=== PATIENT | female | born 1935 | race African-American/Black ===

== ENCOUNTER 2018-06-08 18:46 | Inpatient (IN) | payer OTHER, BC ==
[~2018-06-08] VITALS: Ht 147.3 cm; Wt 75.8 kg
--- NOTE | ~2018-06-08 | HC ---
[facility] [place] [address] CONSULTATION Name: SYARA LARA KELSEY Room #: 227-P [facility] IN M.R.#: [id number] Admission: 06/08/18 Attend Phys: Luke Neville MD Discharge: Date of : 39 Report #: [id number] THIS REPORT FOR: //name// CC: Cade Campbell DATE OF SERVICE: 06/09/2018 CHIEF COMPLAINT: Right shoulder pain. HISTORY OF PRESENT ILLNESS: The patient is a very pleasant 83-year-old female, seen today for evaluation of her right shoulder. The patient is here with her daughter. The patient reports that she was chasing one of her Sharri Tzu dogs as it was trying to escape house and she sustained a fall landing on her right upper extremity. She reports significant pain about her shoulder and reportedly has a history of vertigo over these last several months that has required ambulation with a cane. She denies loss of consciousness or other injuries. Her primary physician is Dr. Swathi Linder. She reports a history of arthritis in multiple areas throughout her body. PAST MEDICAL HISTORY: Significant for vertigo, arthritis, back pain, history of falls, hyperlipidemia, hypertension, spinal stenosis, AFib, GERD, diverticulitis. SOCIAL HISTORY: The patient lives at home with her daughter. PAST SURGICAL HISTORY: Bilateral knee replacement, appendectomy, tonsillectomy, total hysterectomy, breast reduction, abdominal hernia, pacemaker placement. CURRENT MEDICATIONS: Please see current MAR. ALLERGIES: CODEINE CAUSES DIZZINESS. SOCIAL HISTORY: Denies alcohol or tobacco use. PHYSICAL EXAMINATION: GENERAL: The patient is alert, oriented, answering questions appropriately. VITAL SIGNS: Most recent vitals include temperature 97.5, pulse 72, respirations 20, BP 120/52, O2 sat 100% on room air, height 4 feet 10 inches, weight 167. EXTREMITIES: Examination of the upper extremities reveals moderate tenderness about the right proximal humerus. No obvious deformity is noted. She is nontender over the right and left clavicles. Left shoulder has 110 degrees of forward elevation, 25 degrees of external rotation and full strength with testing of the rotator cuff musculature. Strength is limited in the right upper [facility] [address] [place] [address] CONSULTATION Name: SAYRA LARA KELSEY Room #: 227-P [facility] IN .R.#: [id number] Admission: 06/08/18 Attend Phys: Luke Neville MD Discharge: Date of : 39 Report #: [id number] extremity due to pain. She reports no pain or tenderness about the elbow, forearm, wrist or hand. She is able make a full fist on both hands. She reports some chronic intermittent numbness in the left hand that is not new since her fall or hospitalization. She reports intact sensation on the right upper extremity and hand compartments are soft. RADIOGRAPHS: Obtained on 06/08/2018 and 06/09/2018 reveal right glenohumeral joint arthrosis with possible nondisplaced fracture. This is not clearly evident. LABORATORY DATA: Reviewed. IMPRESSION: 1. Right shoulder pain status post fall, possible nondisplaced proximal humerus fracture. 2. Right glenohumeral joint osteoarthritis. PLAN: We reviewed potential treatment options with the patient and her daughter. At this point, they would like further imaging studies to help clarify the potential fracture. An MRI will be ordered if possible because this will also give us more information regarding potential rotator cuff tear. They feel comfortable in proceeding in this manner. We discussed that if she does have a nondisplaced fracture, she likely could be treated nonoperatively with immobilization in her shoulder immobilizer for approximately 1 month's time. The expected post-injury course was gone over in detail. The eventual need for physical therapy to help improve her shoulder function was discussed. They are comfortable in proceeding in this manner. <ELECTRONICALLY SIGNED> By: Edy Segundo MD 06/12/18 [id number] Edy Segundo MD /nt
[~2018-06-08 18:46] MED LIST: ALDACTONE25 MG PO; CIPROFLOXACIN500 M1 PO; COZAAR 50 MG TA50 M2 PO; DILTIAZEM 24HR180 MG PO; DILTIAZEM ER240 M1 PO; GABAPENTIN100 MG PO; HYDROCHLOROTHIA25 M1 PO; HYDROCHLOROTHIA25 M2 GT; MOBIC15 MG PO; NAPROSYN500 MG PO; NEURONTIN100 MG PO; NORCO 5-325 TA1 EACH PO; PRAVACHOL40 MG PO; PRILOSEC20 MG PO; SORINE 80 MG TA80 M1 PO; SYNTHROID50 MCG PO; TAMBOCOR 100 M100 M1 PO; TRAMADOL HCL50 MG PO; TYLENOL325 MG PO; [UNRECOGNIZED DRUG - OTHER]
[2018-06-08 18:59] VITALS: BP 119/64
[2018-06-08] MEDS ORDERED: ZANTAC 150MG T150 MG PO (19:31)
[2018-06-08] MEDS ORDERED: HYDROCHLOROTHIA25 M2 PO (19:31)
[2018-06-08] MEDS ORDERED: PACERONE 200 M200 M1 PO (19:32)
[2018-06-08] MEDS ORDERED: CELEXA10 MG PO (19:32)
[2018-06-08] MEDS ORDERED: TRAMADOL 50 MG50 MG PO (19:32)
[2018-06-08] MEDS ORDERED: MECLIZINE HCL12.5 MG PO (19:37)
[2018-06-08 22:17] LABS: ABSOLUTE NEUTROPHILS 2.3 thou/uL (1.4-8.2); BASOPHILS 0.9 % (0.0-2.0); EOSINOPHILS 3.3 % (0.0-3.0); HEMATOCRIT 34.8 % (37.0-47.0); HEMOGLOBIN 11.4 gm/dL (12.0-15.0); MCH 28.2 pg (26.0-34.0); MCHC 32.7 g/dL (28.0-37.0); MCV 86.2 fL (80.0-100.0); MONOCYTES 7.7 % (1.0-8.0); PLATELET COUNT 217 thou/uL (150-400); POLYS 50.1 % (36.0-66.0); RBC 4.04 mil/uL (4.20-5.00); RDW 14.2 % (10.5-14.5); WBC 4.7 thou/uL (4.0-11.0)
[2018-06-08 22:25] LABS: CREATININE 1.5 mg/dL (0.6-1.0); POTASSIUM 4.4 mmol/L (3.5-5.1)
[2018-06-08 22:57] VITALS: BP 137/47
[2018-06-09 03:34] VITALS: BP 123/86
[2018-06-09 08:54] VITALS: BP 120/52
[2018-06-09 16:18] VITALS: BP 119/57
[2018-06-09 20:00] VITALS: BP 135/75
[2018-06-10 07:15] VITALS: BP 137/79
[2018-06-10 09:09] LABS: ABSOLUTE NEUTROPHILS 2.4 thou/uL (1.4-8.2); EOSINOPHILS 2.8 % (0.0-3.0); HEMATOCRIT 32.8 % (37.0-47.0); HEMOGLOBIN 11.2 gm/dL (12.0-15.0); LYMPHOCYTES 30.7 % (24.0-44.0); MCH 29.3 pg (26.0-34.0); MCV 86.1 fL (80.0-100.0); PLATELET COUNT 195 thou/uL (150-400); POLYS 56.5 % (36.0-66.0); RBC 3.82 mil/uL (4.20-5.00); RDW 14.1 % (10.5-14.5); WBC 4.3 thou/uL (4.0-11.0)
[2018-06-10 09:13] LABS: CALCIUM 8.5 mg/dL (8.5-10.1); CREATININE 1.4 mg/dL (0.6-1.0); POTASSIUM 4.6 mmol/L (3.5-5.1)
[2018-06-10 20:25] VITALS: BP 139/71
[2018-06-11 07:05] VITALS: BP 176/92
[2018-06-11 07:24] LABS: CALCIUM 8.9 mg/dL (8.5-10.1); CREATININE 1.5 mg/dL (0.6-1.0); POTASSIUM 4.5 mmol/L (3.5-5.1)
[2018-06-11 08:13] LABS: FOLIC ACID 15.4 ng/mL (8.6-58.9); TSH 1.853 uIU/mL (0.358-3.740)
[2018-06-11 12:05] LABS: ABSOLUTE NEUTROPHILS 3.6 thou/uL (1.4-8.2); BASOPHILS 0.5 % (0.0-2.0); EOSINOPHILS 1.7 % (0.0-3.0); HEMATOCRIT 35.7 % (37.0-47.0); HEMOGLOBIN 12.4 gm/dL (12.0-15.0); LYMPHOCYTES 22.2 % (24.0-44.0); MCH 29.4 pg (26.0-34.0); MCHC 34.7 g/dL (28.0-37.0); MCV 84.9 fL (80.0-100.0); PLATELET COUNT 205 thou/uL (150-400); POLYS 68.6 % (36.0-66.0); RDW 13.8 % (10.5-14.5); WBC 5.3 thou/uL (4.0-11.0)
[2018-06-11 14:19] LABS: ALBUMIN 3.2 g/dL (3.4-5.0); DIRECT BILIRUBIN < 0.1 mg/dL (<0.1-0.3); SGOT 23 U/L (15-37); SGPT 17 U/L (30-65); TOTAL BILIRUBIN 0.2 mg/dL (<0.1-1.0); TOTAL PROTEIN 5.7 g/dL (6.4-8.2)
[2018-06-11 20:08] VITALS: BP 167/68
[2018-06-12 08:55] VITALS: BP 146/80
[2018-06-12 09:04] LABS: ABSOLUTE NEUTROPHILS 2.8 thou/uL (1.4-8.2); BASOPHILS 0.5 % (0.0-2.0); EOSINOPHILS 2.4 % (0.0-3.0); HEMATOCRIT 35.9 % (37.0-47.0); HEMOGLOBIN 11.8 gm/dL (12.0-15.0); MONOCYTES 9.3 % (1.0-8.0); PLATELET COUNT 197 thou/uL (150-400); POLYS 60.8 % (36.0-66.0); RBC 4.22 mil/uL (4.20-5.00); WBC 4.6 thou/uL (4.0-11.0)
[2018-06-12 09:11] LABS: CALCIUM 9.6 mg/dL (8.5-10.1); CREATININE 1.2 mg/dL (0.6-1.0); POTASSIUM 3.8 mmol/L (3.5-5.1)
[2018-06-12 12:21] LABS: URINE BILIRUBIN NEGATIVE (Negative); URINE BLOOD NEGATIVE (Negative); URINE CLARITY CLEAR; URINE COLOR YELLOW; URINE GLUCOSE-RANDOM* NEGATIVE (Negative); URINE KETONES 1+ (Negative); URINE LEUKOCYTES-REFLEX NEGATIVE (Negative); URINE NITRITE-REFLEX NEGATIVE (Negative); URINE PROTEIN (DIPSTICK) NEGATIVE (Negative)
[2018-06-12 20:00] VITALS: BP 145/78
[2018-06-13 08:17] VITALS: BP 139/81
[2018-06-13 09:56] LABS: ABSOLUTE NEUTROPHILS 3.2 thou/uL (1.4-8.2); BASOPHILS 0.5 % (0.0-2.0); EOSINOPHILS 1.7 % (0.0-3.0); HEMATOCRIT 36.6 % (37.0-47.0); HEMOGLOBIN 12.2 gm/dL (12.0-15.0); LYMPHOCYTES 24.2 % (24.0-44.0); MCH 28.1 pg (26.0-34.0); MCHC 33.3 g/dL (28.0-37.0); MCV 84.4 fL (80.0-100.0); MONOCYTES 8.7 % (1.0-8.0); PLATELET COUNT 208 thou/uL (150-400); POLYS 64.9 % (36.0-66.0); RBC 4.33 mil/uL (4.20-5.00); RDW 13.9 % (10.5-14.5)
[2018-06-13 10:06] LABS: CALCIUM 9.3 mg/dL (8.5-10.1); CREATININE 1.4 mg/dL (0.6-1.0); POTASSIUM 3.7 mmol/L (3.5-5.1)
[2018-06-13 21:29] VITALS: BP 152/77
[2018-06-14 07:37] LABS: ABSOLUTE NEUTROPHILS 2.6 thou/uL (1.4-8.2); BASOPHILS 0.5 % (0.0-2.0); EOSINOPHILS 1.8 % (0.0-3.0); HEMOGLOBIN 11.8 gm/dL (12.0-15.0); LYMPHOCYTES 30.9 % (24.0-44.0); MCH 28.2 pg (26.0-34.0); MCHC 33.6 g/dL (28.0-37.0); MONOCYTES 9.6 % (1.0-8.0); PLATELET COUNT 197 thou/uL (150-400); POLYS 57.2 % (36.0-66.0); RBC 4.17 mil/uL (4.20-5.00); RDW 14.1 % (10.5-14.5); WBC 4.6 thou/uL (4.0-11.0)
[2018-06-14 07:45] LABS: CALCIUM 8.6 mg/dL (8.5-10.1); CREATININE 1.3 mg/dL (0.6-1.0); POTASSIUM 3.5 mmol/L (3.5-5.1)
[2018-06-14 08:33] VITALS: BP 124/59
[2018-06-14] MEDS ORDERED: KEPPRA 500 MG500 M2 PO (12:10)
== END 2018-06-14 14:25 | DRG 563 ==
LOC: ER 18:46 → SICU 22:14 → 4W 22:14 → EROBS 22:14 → 4W 23:17 → SICU 06-09 17:08
PROVIDERS: Emergency Medicine; Hospitalist; Psychiatry & Neurology Neurology
DX: S42.201A Unspecified fracture of upper end of right humerus, initial encounter for closed fracture (principal); I42.9 Cardiomyopathy, unspecified; N17.9 Acute kidney failure, unspecified; M19.011 Primary osteoarthritis, right shoulder; G89.29 Other chronic pain; Z96.653 Presence of artificial knee joint, bilateral; E78.5 Hyperlipidemia, unspecified; I48.91 Unspecified atrial fibrillation; K21.9 Gastro-esophageal reflux disease without esophagitis; M06.9 Rheumatoid arthritis, unspecified; E03.9 Hypothyroidism, unspecified; G47.33 Obstructive sleep apnea (adult) (pediatric); W18.39XA Other fall on same level, initial encounter; R42 Dizziness and giddiness; T14.8XXA Other injury of unspecified body region, initial encounter; I12.9 Hypertensive chronic kidney disease with stage 1 through stage 4 chronic kidney disease, or unspecified chronic kidney disease; N18.9 Chronic kidney disease, unspecified; F32.9 Major depressive disorder, single episode, unspecified; S46.011A Strain of muscle(s) and tendon(s) of the rotator cuff of right shoulder, initial encounter; G40.909 Epilepsy, unspecified, not intractable, without status epilepticus; Y92.098 Other place in other non-institutional residence as the place of occurrence of the external cause; Z88.8 Allergy status to other drugs, medicaments and biological substances; Z79.899 Other long term (current) drug therapy; Z90.710 Acquired absence of both cervix and uterus; Z90.89 Acquired absence of other organs; Z90.49 Acquired absence of other specified parts of digestive tract; Z95.0 Presence of cardiac pacemaker; Z86.73 Personal history of transient ischemic attack (TIA), and cerebral infarction without residual deficits; Y93.89 Activity, other specified; Y99.8 Other external cause status
CPT/HCPCS: 10040; 15002

== ENCOUNTER → 2019-01-21 | Outpatient (CLI) | payer OTHER, BC ==
[~2019-01-21] MED LIST changes: +CELEXA10 MG PO; +HYDROCHLOROTHIA25 M2 PO; +KEPPRA 500 MG500 M2 PO; +MECLIZINE HCL12.5 MG PO; +PACERONE 200 M200 M1 PO; +TRAMADOL 50 MG50 MG PO; +ZANTAC 150MG T150 MG PO
== END ==
LOC: NUC 11:10
DX: M19.011 Primary osteoarthritis, right shoulder (principal); M19.012 Primary osteoarthritis, left shoulder; M19.032 Primary osteoarthritis, left wrist; M19.031 Primary osteoarthritis, right wrist; M19.022 Primary osteoarthritis, left elbow; M19.021 Primary osteoarthritis, right elbow; M75.81 Other shoulder lesions, right shoulder; C16.9 Malignant neoplasm of stomach, unspecified; M48.061 Spinal stenosis, lumbar region without neurogenic claudication